=== PATIENT | female | born 1955 | race Caucasian/White ===

== ENCOUNTER 2016-10-23 10:25 | Emergency (ER) | payer MEDICAID ==
[~2016-10-23 10:25] MED LIST: ACTONEL35 MG; ACTOS45 MG; ACTOS45 MG PO; AMARYL2 MG PO; AMLODIPINE BESYL5 MG PO; ASPIRIN81 M1 PO; CALTRATE 61 TAB.CHEW; CARVEDILOL12.5 M1 PO; CLARITIN-D1 TAB.SR; CLARITIN10 MG; CLARITIN10 MG PO; COMBIVENT1 PUFF INH; COMPAZINE10 M PO; FLONASE ALLERG9.9 ML; GLUCOPHAGE500 MG; GLUCOPHAGE500 MG PO; HYDROCODONE; HYDROCODONE-IB1 EACH PO; HYDROXYZINE HCL25 M1 PO; HYDROXYZINE HCL25 MG; IBUPROFEN; KEFLEX500 MG PO; LEXAPRO10 MG PO; LISINOPRIL10 MG PO; LISINOPRIL30 MG PO; LOPRESSOR25 MG/TA2 PO; LYRICA75 MG; METHADONE H5 MG/5 M1 PO; MOBIC7.5 M2 PO; NORCO 5/325 TAB1 TAB PO; PERCOCET 10-321 EACH PO; PERCOCET 5/3251 TAB PO; PHENERGAN12.5 MG/TA PO; PREMARIN0.625 MG; PRILOSEC20 MG; PRILOSEC20 MG PO; PRILOSEC40 MG; PRILOSEC40 MG PO; PROMETHAZINE12.5 M2 PO; PROMETHAZINE12.5 MG; PROTONIX40 MG; REGLAN10 MG; SENNA S TABLET1 TAB PO; SIMVASTATIN5 MG PO; SINGULAIR10 M1 PO; SINGULAIR10 MG; SINGULAIR10 MG PO; TYLENOL ARTHRI650 MG; ULTRAM50 MG; VIBRAMYCIN100 MG; VICODIN 5/500 T1 TAB; VICOPROFEN 200-1 TAB PO; VITAMIN D250000 UNI1 PO; VITAMIN D50000 UNIT; VITAMIN E400 UNIT; WELCHOL625 MG; WELLBUTRIN SR150 MG; WELLBUTRIN SR150 MG PO; ZITHROMAX250MG Z-PAK PO; ZOFRAN4 MG; ZOLOFT100 MG; ZOLOFT100 MG PO; ZOLOFT50 MG PO; ZYRTEC10 MG; [UNRECOGNIZED DRUG - CODE]
[2016-10-23] MEDS ORDERED: ULTRAM50 M1 PO (10:31)
[2016-10-23] MEDS ORDERED: LISINOPRIL-HCT1 EAC1 PO (10:31)
[2016-10-23] MEDS ORDERED: SINGULAIR10 M1 PO (10:32)
[2016-10-23] MEDS ORDERED: ZOVIRAX400 M1 PO (10:32)
[2016-10-23] MEDS ORDERED: XANAX0.5 M1 PO ×2 (10:33→10:57)
[2016-10-23] MEDS ORDERED: VIIBRYD40 M1 PO (10:33)
[2016-10-23] MEDS ORDERED: VITAMIN D32000 UNI3 PO (10:33)
[2016-10-23] MEDS ORDERED: PROMETHAZINE HC25 M3 PO (10:34)
[2016-10-23] MEDS ORDERED: TENORMIN50 M1 PO ×2 (10:34→11:19)
[2016-10-23] MEDS ORDERED: [UNRECOGNIZED DRUG - OTHER] PO (10:34)
[2016-10-23] MEDS ORDERED: ZOCOR40 M1 PO (10:35)
[2016-10-23] MEDS ORDERED: GLUCOPHAGE500 M3 PO (11:18)
[2016-10-23] MEDS ORDERED: NORVASC2.5 M1 PO (11:18)
[2016-10-23] MEDS ORDERED: HYDROXYZINE HCL25 M1 PO (11:19)
[2016-10-23] MEDS ORDERED: ASPIRIN EC81 MG PO (11:19)
[2016-10-23] MEDS ORDERED: CLARITIN10 M6 PO (11:19)
[2016-10-23] MEDS ORDERED: FLONASE ALLERG9.9 ML (11:20)
[2016-10-23] MEDS ORDERED: OMEPRAZOLE20 M3 PO (11:28)
[2016-10-23 12:02] LABS: BASO % 0.3 % (0-2); EOS % 1.3 % (0-7); EOSINOPHIL ABSOLUTE COUNT 0.1 tho/cmm (0.0-0.7); HGB-HEMOGLOBIN 14.6 gm/dl (12.0-15.5); IMMATURE GRANULOCYTES ABSOLUTE 0.04 tho/cmm (0-0.03); IMMATURE GRANULOCYTES PERCENT 0.4 % (0-0.3); LYMPH % 27.3 % (20-45); LYMPH ABSOLUTE COUNT 2.4 tho/cmm (0.8-4.5); MCH (MEAN CORPUSCULAR HGB) 28.3 pg (28.0-32.0); MCHC MEAN CORPUSCULAR HGB CONC 33.2 % (32.0-36.0); MCV (MEAN CELL VOLUME) 85.4 fl (82.0-96.0); MEAN PLATELET VOLUME 10.4 cmc (9.4-12.4); MONO % 5.3 % (0-12); MONOCYTE ABSOLUTE COUNT 0.5 tho/cmm (0.0-1.2); NEUTROPHIL ABSOLUTE COUNT 5.8 tho/cmm (1.6-8.0); NEUTROPHIL-AUTOMATED 5.8 tho/cmm (1.6-8.0); NEUTROPHILS % 65.4 % (40-80); PLATELET COUNT 240 tho/cmm (150-450); RED BLOOD COUNT 5.15 mil/cmm (4.00-5.20); RED CELL DISTRIBUTION WIDTH 17.8 % (12.4-16.4); WHITE BLOOD COUNT 8.9 tho/cmm (4.0-10.0)
[2016-10-23 12:18] LABS: ALB/GLOB RATIO 0.7 (0.8-2.0); ALBUMIN 3.1 g/dl (3.5-5.0); ALKALINE PHOSPHATASE 79 U/L (33-138); ALT/SGPT 24 U/L (12-78); ANION GAP 11 mmol/L (0-20); AST/SGOT 20 U/L (10-40); BILIRUBIN,TOTAL 0.2 mg/dl (0-1.5); BLOOD UREA NITROGEN 14 mg/dl (6-24); CALCIUM 8.6 mg/dl (8.5-10.5); CARBON DIOXIDE-VENOUS 28 mmol/L (22-32); CHLORIDE 109 mmol/l (96-110); CREATININE 0.69 mg/dl (0.50-1.10); GLUCOSE 116 mg/dL (70-110); LIPASE 167 U/L (73-393); POTASSIUM 4.1 mmol/L (3.7-5.1); SODIUM 144 mmol/L (135-145); eGFR VALUE FOR BLACK >90 mL/Min
[2016-10-23] MEDS ORDERED: CYCLOBENZAPRINE10 M1 PO (12:47)
== END 2016-10-23 13:04 ==
LOC: EDMED 10:25
PROVIDERS: Emergency Medicine
DX: R10.11 Right upper quadrant pain (principal); E11.9 Type 2 diabetes mellitus without complications; E66.01 Morbid (severe) obesity due to excess calories; Z86.19 Personal history of other infectious and parasitic diseases; Z88.1 Allergy status to other antibiotic agents; Z88.8 Allergy status to other drugs, medicaments and biological substances; Z79.82 Long term (current) use of aspirin; Z79.899 Other long term (current) drug therapy
CPT/HCPCS: J3010; J7030